=== PATIENT | female | born 1975 | race Hispanic/Latino ===

== ENCOUNTER 2017-12-02 02:50 | Emergency (ER) | payer BC ==
[2017-12-02] MEDS ORDERED: IBUPROFEN 400 MG TAB ONE (04:02)
[2017-12-02] MEDS ORDERED: ACETAMINOPHEN 500 MG TAB ONE (04:03)
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
== END 2017-12-02 06:30 | disposition home or self-care (01) ==
LOC: ER 02:50
DX: S19.80XA Other specified injuries of unspecified part of neck, initial encounter (principal); Y08.89XA Assault by other specified means, initial encounter; Y93.89 Activity, other specified; Y92.89 Other specified places as the place of occurrence of the external cause; Y99.8 Other external cause status; Z91.018 Allergy to other foods
CPT/HCPCS: 72125; 99284

== ENCOUNTER 2018-03-17 07:17 | Emergency (ER) | payer BC ==
[2018-03-17] MEDS ORDERED: NA CHLORIDE 0.9% 1,000 ML ONE (08:03)
[2018-03-17] MEDS ORDERED: MECLIZINE HCL 12.5 MG TAB ONE ×2 (08:03→08:06)
[2018-03-17] MEDS ORDERED: CEFTRIAXONE/SWI 1gm 1 GM/10 ML SYR ONE (08:09)
[2018-03-17] MEDS ORDERED: ONDANSETRON 4 MG/2 ML VIAL ONE (08:09)
--- NOTE | 2018-03-17 08:17 | RAD REPORT ---
EXAM DESCRIPTION: CT - Head Brain Wo Cont - 03/17/2018 8:06 am CLINICAL HISTORY: Dizziness, vomiting, stroke-like symptoms COMPARISON: None. TECHNIQUE: Axial 5 mm thick images of the head were obtained without IV contrast. All CT scans are performed using dose optimization technique as appropriate and may include automated exposure control or mA/KV adjustment according to patient size. FINDINGS: No intracranial hemorrhage, mass, edema or shift of mid-line structures. No acute infarcti on changes seen. No abnormal extra-axial fluid collections. Ventricles are normal. Mastoid air cells and visualized portions of the paranasal sinuses are clear. No acute bony findings. Asymmetry is created by head tilt. IMPRESSION: Negative non-contrast CT head examination.
[2018-03-17 09:07] LABS: Urine Blood NEGATIVE (NEG); Urine Glucose NEGATIVE (NEG); Urine Protein NEGATIVE (NEG); Urine Specific Gravity >1.030 (1.005-1.030); Urine pH 5.5 (5.0-7.0)
[2018-03-17 09:13] LABS: Absolute Lymphocytes (CBC) 1.4 K/uL (0.7-4.9); Absolute Monocytes 0.4 K/uL (0.1-1.3); Absolute Neutrophil 4.7 K/uL (1.8-8.0); Basophils % 0.3 % (0-1.3); Eosinophils % 0.4 % (0-4.4); Hematocrit 38.4 % (36.0-45.0); Lymphocytes % 20.9 % (15.3-44.8); MCH 31.9 pg (27.0-35.0); MCV 92.5 fL (80-100); MPV 9.5 fL (7.6-11.3); Monocytes % 5.6 % (3.3-12.3); RBC Red Blood Cell Count 4.15 M/uL (3.86-4.86)
[2018-03-17 09:20] LABS: Albumin 3.9 g/dL (3.4-5.0); Bilirubin Total 0.6 mg/dL (0.2-1.0); Potassium 3.5 mmol/L (3.5-5.1); Protein, Total 7.2 g/dL (6.4-8.2)
--- NOTE | 2018-03-17 09:28 | ER ---
Nurse's Notes [facility] Name: Lyubov Alvarado Age: 42 yrs Sex: Female : 1975 Arrival Date: 03/17/2018 Time: 07:19 Bed 8 Private MD: Diagnosis: Vomiting;Vertigo of central origin, unspecified ear;Essential (primary) hypertension;Otitis media, unspecified, left ear Presentation: 03/17 07:35 Presenting complaint: Patient states: woke up this morning feeling very dizzy and had iw several episodes of vomiting, started feeling dizzy yest evening, has had previous episodes of dizziness but usually doesn't last this long, also has abd pain X 1 week, abdomen feels hard. Transition of care: patient was not received from another setting of care. Onset of symptoms was March 17, 2018. Risk Assessment: Do you want to hurt yourself or someone else? Patient reports no desire to harm self or others. Initial Sepsis Screen: Does the patient meet any 2 criteria? No. Patient's initial sepsis screen is negative. Does the patient have a suspected source of infection? No. Patient's initial sepsis screen is negative. Care prior to arrival: None. 07:35 Method Of Arrival: Ambulatory iw 07:35 Acuity: CALIN 3 iw CIRCUIT RECORDER: 07:39 LMP N/A - Hysterectomy iw Historical: - Allergies: 07:39 asparagus; iw - Home Meds: 07:39 lisinopril 10 mg Oral tab 1 tab once daily [Active]; iw - PMHx: 07:39 Hypertension; iw - PSHx: 07:39 Hysterectomy; ; iw - Immunization history:: Adult Immunizations not up to date. - Social history:: Smoking status: Patient uses tobacco products, denies chronic smoking, but will smoke occasionally. - Ebola Screening: : Patient negative for fever greater than or equal to 101.5 degrees Fahrenheit, and additional compatible Ebola Virus Disease symptoms Patient denies exposure to infectious person Patient denies travel to an Ebola-affected area in the 21 days before illness onset No symptoms or risks identified at this time. - Family history:: not pertinent. Screenin:15 Abuse screen: Denies threats or abuse. Denies injuries from another. Nutritional jl7 screening: No deficits noted. Tuberculosis screening: No symptoms or risk factors identified. Fall Risk IV access (20 points). Assessment: 07:30 General: Appears in no apparent distress. uncomfortable, Behavior is calm, cooperative, jl7 appropriate for age. Pain: Denies pain. Neuro: Level of Consciousness is awake, alert, obeys commands, Oriented to person, place, time, situation, Gait is steady, Reports dizziness. Cardiovascular: Patient's skin is warm and dry. Respiratory: Airway is patent Respiratory effort is even, unlabored, Respiratory pattern is regular, symmetrical. GI: Abdomen is flat, non-distended, Bowel sounds present X 4 quads. Patient currently denies diarrhea, nausea, vomiting. : No signs and/or symptoms were reported regarding the genitourinary system. EENT: No signs and/or symptoms were reported regarding the EENT system. Derm: Skin is pink, warm \T\ dry. Musculoskeletal: No signs and/or symptoms reported regarding the musculoskeletal system. 09:15 Reassessment: Patient appears in no apparent distress at this time. Patient and/or jl7 family updated on plan of care and expected duration. Pain level reassessed. Patient states symptoms have improved. Vital Signs: 07:39 BP 137 / 93; Pulse 63; Resp 16 S; Temp 98.1(TE); Pulse Ox 98% on R/A; Weight 67.59 kg; iw Height 5 ft. 3 in. (160.02 cm); Pain 4/10; 09:15 BP 134 / 86; Pulse 62; Resp 16 S; Pulse Ox 98% on R/A; jl7 07:39 Body Mass Index 26.39 (67.59 kg, 160.02 cm) iw ED Course: 07:19 Patient arrived in ED. tw3 07:27 Steven Stack MD is Attending Physician. nghia 07:34 Roberto Billings, MARLENA is Primary Nurse. jl7 07:37 Triage completed. iw 07:40 Arm band placed on. iw 08:04 CT completed. Patient tolerated procedure well. Patient moved to CT via wheelchair. sj Patient moved back from CT. 08:05 CT Head Brain wo Cont In Process Unspecified. EDMS 08:10 EKG done, by ED staff, reviewed by Steven Stack MD. jb1 08:30 No provider procedures requiring assistance completed. Initial lab(s) drawn, by sabrina disla sent to lab. Inserted saline lock: 22 gauge in left antecubital area, using aseptic technique. Blood collected. 09:15 Patient has correct armband on for positive identification. Bed in low position. Call jl7 light in reach. Side rails up X 1. Pulse ox on. NIBP on. Warm blanket given. 09:28 Tim Harmon MD is Referral Physician. [facility] 09:53 IV discontinued, intact, bleeding controlled, No redness/swelling at site. Pressure jl7 dressing applied. Administered Medications: 08:15 Drug: Meclizine 50 mg Route: PO; jl7 09:15 Follow up: Response: No adverse reaction; Marked relief of symptoms jl7 08:30 Drug: NS 0.9% 1000 ml Route: IV; Rate: 1 bolus; Site: left antecubital; jl7 09:15 Follow up: Response: No adverse reaction; IV Status: Completed infusion jl7 08:31 Drug: Rocephin - (cefTRIAXone) 1 grams Route: IVPB; Infused Over: 30 mins; Site: left jl7 antecubital; 08:34 Follow up: IV Status: Completed infusion jl7 09:41 Not Given (Patient Refused): Zofran 4 mg IVP once; over 2 minutes jl7 Outcome: 09:28 Discharge ordered by . [facility] 09:53 Discharged to home ambulatory. jl7 09:53 Condition: stable 09:53 Discharge instructions given to patient, Instructed on discharge instructions, follow up and referral plans. medication usage, Demonstrated understanding of instructions, follow-up care, medications, Prescriptions given X 3. 09:53 Patient left the ED. jl7 Signatures: Dispatcher [employer] EDSarkis Gunn jb1 Steven Stack MD MD cha Jones, Ana Collado, RN Roberto Pulido RN RN jl7 Wade, Sabine tw3 Corrections: (The following items were deleted from the chart) 09:06 09:05 IV Status: Completed infusion jl7 jl7
--- NOTE | 2018-03-17 09:29 | EDPHYS ---
Physician Documentation [facility] Name: Lyubov Alvarado Age: 42 yrs Sex: Female : 1975 Arrival Date: 03/17/2018 Time: 07:19 Bed 8 Private MD: MORGAN Physician Steven Stack HPI: 03/17 07:53 This 42 yrs old Female presents to ER via Ambulatory with complaints of nghia Vomiting, Dizziness. 07:53 The patient presents to the emergency department with nausea, vomiting, that is nghia continuous. 07:54 Onset: The symptoms/episode began/occurred 3 day(s) ago. Possible causes: unknown. The nghia symptoms are aggravated by nothing. The patient presents with dizziness. Context: occurred. Associated signs and symptoms: Pertinent positives: nausea, vomiting. [employer]: 07:39 LMP N/A - Hysterectomy iw Historical: - Allergies: 07:39 asparagus; iw - Home Meds: 07:39 lisinopril 10 mg Oral tab 1 tab once daily [Active]; iw - PMHx: 07:39 Hypertension; iw - PSHx: 07:39 Hysterectomy; ; iw - Immunization history:: Adult Immunizations not up to date. - Social history:: Smoking status: Patient uses tobacco products, denies chronic smoking, but will smoke occasionally. - Ebola Screening: : Patient negative for fever greater than or equal to 101.5 degrees Fahrenheit, and additional compatible Ebola Virus Disease symptoms Patient denies exposure to infectious person Patient denies travel to an Ebola-affected area in the 21 days before illness onset No symptoms or risks identified at this time. - Family history:: not pertinent. ROS: 07:54 Constitutional: Negative for fever, chills, and weight loss, Eyes: Negative for injury, nghia pain, redness, and discharge, ENT: Negative for injury, pain, and discharge, Neck: Negative for injury, pain, and swelling, Cardiovascular: Negative for chest pain, palpitations, and edema, Respiratory: Negative for shortness of breath, cough, wheezing, and pleuritic chest pain, Back: Negative for injury and pain, : Negative for injury, bleeding, discharge, and swelling, MS/Extremity: Negative for injury and deformity, Skin: Negative for injury, rash, and discoloration, Psych: Negative for depression, anxiety, suicide ideation, homicidal ideation, and hallucinations, Allergy/Immunology: Negative for hives, rash, and allergies, Endocrine: Negative for neck swelling, polydipsia, polyuria, polyphagia, and marked weight changes, Hematologic/Lymphatic: Negative for swollen nodes, abnormal bleeding, and unusual bruising. 07:54 Abdomen/GI: Positive for nausea and vomiting. 07:54 Neuro: Positive for dizziness. Exam: 07:54 Constitutional: This is a well developed, well nourished patient who is awake, alert, nghia and in no acute distress. Head/Face: Normocephalic, atraumatic. ENT: Nares patent. No nasal discharge, no septal abnormalities noted. Tympanic membranes are normal and external auditory canals are clear. Oropharynx with no redness, swelling, or masses, exudates, or evidence of obstruction, uvula midline. Mucous membranes moist. Neck: Trachea midline, no thyromegaly or masses palpated, and no cervical lymphadenopathy. Supple, full range of motion without nuchal rigidity, or vertebral point tenderness. No Meningismus. Chest/axilla: Normal chest wall appearance and motion. Nontender with no deformity. No lesions are appreciated. Cardiovascular: Regular rate and rhythm with a normal S1 and S2. No gallops, murmurs, or rubs. Normal PMI, no JVD. No pulse deficits. Respiratory: Lungs have equal breath sounds bilaterally, clear to auscultation and percussion. No rales, rhonchi or wheezes noted. No increased work of breathing, no retractions or nasal flaring. Abdomen/GI: Soft, non-tender, with normal bowel sounds. No distension or tympany. No guarding or rebound. No evidence of tenderness throughout. Back: No spinal tenderness. No costovertebral tenderness. Full range of motion. Female : Normal external genitalia. Skin: Warm, dry with normal turgor. Normal color with no rashes, no lesions, and no evidence of cellulitis. MS/ Extremity: Pulses equal, no cyanosis. Neurovascular intact. Full, normal range of motion. Neuro: Awake and alert, GCS 15, oriented to person, place, time, and situation. Cranial nerves II-XII grossly intact. Motor strength 5/5 in all extremities. Sensory grossly intact. Cerebellar exam normal. Normal gait. 07:54 Eyes: Periorbital structures: appear normal, no acute changes, Pupils: no acute changes, equal, round, and reactive to light and accomodation, Extraocular movements: no acute changes, Conjunctiva: normal, no acute changes, Corneas: are normal, Sclera: no appreciated abnormality, Nystagmus: nystagmus with fast component noted, bilaterally. 07:54 Neck: ROM/movement: is normal, no acute changes. 09:28 Neck: no JVD, no bruits. [facility] Vital Signs: 07:39 BP 137 / 93; Pulse 63; Resp 16 S; Temp 98.1(TE); Pulse Ox 98% on R/A; Weight 67.59 kg; iw Height 5 ft. 3 in. (160.02 cm); Pain 4/10; 09:15 BP 134 / 86; Pulse 62; Resp 16 S; Pulse Ox 98% on R/A; jl7 07:39 Body Mass Index 26.39 (67.59 kg, 160.02 cm) iw MDM: 07:27 Patient medically screened. [facility] 07:58 Data reviewed: vital signs, nurses notes, lab test result(s), EKG, radiologic studies, [facility] CT scan. 03/17 07:53 Order name: CBC with Diff; Complete Time: 09:25 [facility] 03/17 07:53 Order name: Comprehensive Metabolic Panel; Complete Time: 09:25 [facility] 03/17 07:53 Order name: CT Head Brain wo Cont; Complete Time: 09:25 [facility] 03/17 07:53 Order name: Urine Culture [facility] 03/17 08:08 Order name: Urine Dipstick--Ancillary (enter results); Complete Time: 09:25 03/17 07:53 Order name: Urine Dipstick-Ancillary (obtain specimen); Complete Time: 08:05 [facility] 03/17 07:53 Order name: Urine Test (obtain specimen); Complete Time: 08:05 [facility] 03/17 07:53 Order name: EKG; Complete Time: 07:54 [facility] 03/17 07:53 Order name: EKG - Nurse/Tech; Complete Time: 09:41 [facility] Administered Medications: 08:15 Drug: Meclizine 50 mg Route: PO; 09:15 Follow up: Response: No adverse reaction; Marked relief of symptoms [facility] 08:30 Drug: NS 0.9% 1000 ml Route: IV; Rate: 1 bolus; Site: left antecubital; jl7 09:15 Follow up: Response: No adverse reaction; IV Status: Completed infusion jl7 08:31 Drug: Rocephin - (cefTRIAXone) 1 grams Route: IVPB; Infused Over: 30 mins; Site: left [facility] antecubital; 08:34 Follow up: IV Status: Completed infusion jl7 09:41 Not Given (Patient Refused): Zofran 4 mg IVP once; over 2 minutes jl7 Disposition: 03/17/18 09:28 Discharged to Home. Impression: Vomiting, Vertigo of central origin, unspecified ear, Essential (primary) hypertension, Otitis media, unspecified, left ear. - Condition is Stable. - Discharge Instructions: Otitis Media, Adult, Hypertension, Nausea and Vomiting, Adult, Vertigo, Nausea and Vomiting, Adult, Prls-fc-[id number], Hypertension, Szue-cp-Hilm, How to Take Your Blood Pressure, Auum-[id number], Vertigo, Otgy-ug-Satz, Managing Your Hypertension. - Prescriptions for Augmentin 875- 125 mg Oral Tablet - take 1 tablet by ORAL route every 12 hours for 7 days; 14 tablet. Meclizine 25 mg Oral Tablet - take 1 tablet by ORAL route every 8 hours As needed; 30 tablet. Zofran 4 mg Oral Tablet - take 1 tablet by ORAL route every 12 hours As needed; 20 tablet. - Medication Reconciliation Form, Thank You Letter, Antibiotic Education, Prescription Opioid Use form. - Follow up: Private Physician; When: 2 - 3 days; Reason: Recheck today's complaints, Continuance of care, Re-evaluation by your physician. Follow up: Tim Harmon; When: 2 - 3 days; Reason: Recheck today's complaints, Re-evaluation by your physician. - Problem is new. - Symptoms have improved. Signatures: Dispatcher [employer] EDSteven Andujar MD MD cha Williams, Irene, RN RN iw Leal, Jahala, RN RN jl7 Corrections: (The following items were deleted from the chart) 09:53 09:28 03/17/2018 09:28 Discharged to Home. Impression: Vomiting; Vertigo of central jl7 origin, unspecified ear; Essential (primary) hypertension; Otitis media, unspecified, left ear. Condition is Stable. Discharge Instructions: Otitis Media, Adult, Hypertension, Nausea and Vomiting, Adult, Vertigo, Nausea and Vomiting, Adult, [id number], Hypertension, Vaec-ud-Dppq, How to Take Your Blood Pressure, Tvnx-kj-Ljtc, Vertigo, Tizl-hw-Yfbm, Managing Your Hypertension. Prescriptions for Augmentin 875-125 mg Oral Tablet - take 1 tablet by ORAL route every 12 hours for 7 days; 14 tablet, Meclizine 25 mg Oral Tablet - take 1 tablet by ORAL route every 8 hours As needed; 30 tablet, Zofran 4 mg Oral Tablet - take 1 tablet by ORAL route every 12 hours As needed; 20 tablet. and Forms are Medication Reconciliation Form, Thank You Letter, Antibiotic Education, Prescription Opioid Use. Follow up: Private Physician; When: 2 - 3 days; Reason: Recheck today's complaints, Continuance of care, Re-evaluation by your physician. Follow up: Tim Harmon; When: 2 - 3 days; Reason: Recheck today's complaints, Re-evaluation by your physician. Problem is new. Symptoms have improved. nghia
--- NOTE | 2018-03-19 10:14 | EKG ---
Test Date: 2018-03-17 Test Time: 08:12:48 Superintendent Logging: JUAN MANUEL MEASUREMENT RESULTS: Intervals: Rate: 52 [place]: 158 QRSD: 96 QT: 434 QTc: 403 [place]: P: 58 [place]: 158 QRS: 69 T: 63 INTERPRETIVE STATEMENTS: Sinus bradycardia Otherwise normal ECG No previous ECG available for comparison Electronically Signed On 03-19-18 10:13:57 CDT by Audi Manuel
== END 2018-03-17 09:53 | disposition home or self-care (01) ==
LOC: ER 07:17
DX: H66.92 Otitis media, unspecified, left ear (principal); R42 Dizziness and giddiness; I10 Essential (primary) hypertension; F17.220 Nicotine dependence, chewing tobacco, uncomplicated
CPT/HCPCS: 36415; 70450; 80053; 81003; 85025; 87086; 87088; 93005; 96361; 96374; 99284; J0696; J2405; J7030